=== PATIENT | female | born 1980 | race Caucasian/White ===

== ENCOUNTER 2021-04-14 19:27 | Emergency (ER) | payer OTHER ==
[~2021-04-14] VITALS: Ht 175.3 cm; Wt 93.0 kg
[2021-04-14] MEDS ORDERED: LISINOPRIL-HCT1 EACH PO (19:48)
[2021-04-15] MEDS ORDERED: IBU800 MG PO (00:41)
[2021-04-15] MEDS ORDERED: MAPAP500 MG PO (00:41)
--- NOTE | 2021-04-16 14:58 | EKG ---
[facility] [address] [place], [place] [address] Signed Sinus bradycardia Low voltage QRS Nonspecific T wave abnormality Abnormal ECG No previous ECGs available Confirmed by DIANA WRIGHT MD ([id number] on 04/16/2021 2:58:29 PM Electronically Signed By: DIANA WRIGHT MD 04/16/21 1458 PATIENT NAME: KRISTINA PISANO Electrocardiogram DATE OF : 76 PHYSICIAN: DIANA WRIGHT MD REPORT #: [id number] REPORT IS CONFIDENTIAL AND NOT TO BE RELEASED WITHOUT AUTHORIZATION
== END 2021-04-15 00:59 | disposition home or self-care (01) ==
LOC: ED 19:27
DX: M25.512 Pain in left shoulder (principal); R07.89 Other chest pain; I10 Essential (primary) hypertension; Z79.899 Other long term (current) drug therapy
CPT/HCPCS: 71045; 80053; 83735; 84484; 85025; 85379; 93005; 93010; 99285-25; A9270